=== PATIENT | female | born 2000 | race Caucasian/White ===

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

== ENCOUNTER 2023-05-20 17:30 | Observation (INO) | payer BC | END 2023-05-20 19:21 | disposition home or self-care (01) | LOC: MW.OB 17:30 | PROVIDERS: ADMIT Obstetrics & Gynecology; ATTEND Obstetrics & Gynecology | DX: O42.913 Preterm premature rupture of membranes, unspecified as to length of time between rupture and onset of labor, third trimester (principal); O47.03 False labor before 37 completed weeks of gestation, third trimester; O36.8330 Maternal care for abnormalities of the fetal heart rate or rhythm, third trimester, not applicable or unspecified; Z3A.31 31 weeks gestation of pregnancy | CPT/HCPCS: 59025; 84112 ==

== ENCOUNTER 2025-06-19 11:03 | Observation (INO) | payer BC, MEDICAID ==
[2025-06-19 12:27] LABS: APPEARANCE,URINE CLEAR; GLUCOSE,URINE NEGATIVE (NEGATIVE); OCCULT BLOOD,URINE NEGATIVE (NEGATIVE)
[2025-06-19 12:52] LABS: BASOPHILS ABSOLUTE AUTO 0.04 K/uL (0.00-0.20); BASOPHILS PERCENT AUTO 0.5 % (0.0-1.0); EOSINOPHILS ABSOLUTE AUTO 0.05 K/uL (0.00-0.45); EOSINOPHILS PERCENT AUTO 0.6 % (0.0-6.0); IMMATURE GRAN ABSOLUTE AUTO 0.15 K/uL (0.00-0.05); IMMATURE GRAN PERCENT AUTO 1.9 % (0.0-0.4); LYMPHOCYTES ABSOLUTE AUTO 1.78 K/uL (1.00-4.80); LYMPHOCYTES PERCENT AUTO 22.5 % (24.0-44.0); MEAN PLATELET VOLUME 10.1 fL (9.4-12.3); MONOCYTES ABSOLUTE AUTO 0.58 K/uL (0.00-0.80); MONOCYTES PERCENT AUTO 7.3 % (0.0-8.0); NEUTROPHILS ABSOLUTE AUTO 5.30 K/uL (1.80-7.70); NEUTROPHILS PERCENT AUTO 67.2 % (41.0-71.0); NRBC ABSOLUTE 0.00 K/uL (0.00-0.02); NRBC PERCENT 0.0 /100WBC (0.0-0.2); PLATELET COUNT,PLT 230 K/uL (150-400); RED BLOOD CELL COUNT 4.05 M/uL (4.10-5.30); WHITE BLOOD CELL COUNT,WBC 7.90 K/uL (3.9-11.3)
[2025-06-19 13:28] LABS: A/G RATIO 0.8 (0.9-1.6); ALANINE AMINOTRANSFERASE,ALT 16.0 IU/L (14-63); ASPARTATE AMNIOTRANSFERASE,AST 24.0 IU/L (15-37); BILIRUBIN TOTAL 0.6 mg/dL (0.2-1.0); BLOOD UREA NITROGEN,BUN 3.0 mg/dL (7.0-18.0); CARBON DIOXIDE,CO2 23.5 mmol/L (21.0-32.0); CHLORIDE,CL 104.0 mmol/L (98-107); CREATININE 0.4 mg/dL (0.6-1.0); EST CRCL DRUG DOSING (CG) 204.77 mL/min; GLUCOSE RANDOM 75.0 mg/dL (74-106); POTASSIUM,K 3.8 mmol/L (3.5-5.1); PROTEIN TOTAL,TP 6.3 g/dL (6.4-8.2); SODIUM,NA 137.0 mmol/L (136-145)
[2025-06-19 13:30] LABS: ESTIMATED GFR 143.0 mL/min (>60)
[2025-06-19] MEDS ORDERED: diphenhydrAMINE 50 MG/ML SDV IVPUSH PRN (15:08)
[2025-06-19] MEDS: Lactated Ringers 1,000 ML IV SCH (15:13)
[2025-06-19] MEDS: Betamethasone Acetate/Betamethasone Sod Phosphate 6 MG/1 ML MDV IM ONE (15:30)
[2025-06-19] MEDS: diphenhydrAMINE 50 MG/ML SDV IVPUSH ONE (15:33)
[2025-06-20] MEDS: Acetaminophen/Butalbital/Caffeine 325-50-40 MG Tab PO PRN (13:20)
[2025-06-20] MEDS: Betamethasone Acetate/Betamethasone Sod Phosphate 6 MG/1 ML MDV IM ONE (15:04)
== END 2025-06-20 15:15 | disposition home or self-care (01) ==
LOC: MW.OBCHECK 11:03 → MW.OB 11:04 → MW.OBCHECK 16:12 → MW.OB 16:13
PROVIDERS: ADMIT Obstetrics & Gynecology; ATTEND Obstetrics & Gynecology
DX: O26.893 Other specified pregnancy related conditions, third trimester (principal); R10.10 Upper abdominal pain, unspecified; F32.A Depression, unspecified; F41.9 Anxiety disorder, unspecified; G47.00 Insomnia, unspecified; R45.851 Suicidal ideations; Z3A.36 36 weeks gestation of pregnancy; Z91.018 Allergy to other foods; Z79.899 Other long term (current) drug therapy
CPT/HCPCS: 36415; 59025; 80053; 81003; 84112; 85025; 87086; A9270-GY; J0702; J1200; J7120

== ENCOUNTER 2025-07-05 04:55 | Inpatient (IN) | payer BC, MEDICAID ==
[2025-07-05] MEDS ORDERED: Sodium Chloride 0.9% 10 ML Syringe FLUSH PRN (05:00)
[2025-07-05] MEDS ORDERED: Oxytocin/0.9 % Sodium Chloride 30 UNIT/500 ML BAG IV SCH (05:00)
[2025-07-05] MEDS ORDERED: Sodium Chloride 0.9% 2.5 ML Syringe FLUSH PRN (05:00)
[2025-07-05] MEDS: Lactated Ringers 1,000 ML IV SCH (05:44)
[2025-07-05 05:54] LABS: MEAN PLATELET VOLUME 10.3 fL (9.4-12.3); NRBC ABSOLUTE 0.00 K/uL (0.00-0.02); NRBC PERCENT 0.0 /100WBC (0.0-0.2); PLATELET COUNT,PLT 212 K/uL (150-400); RED BLOOD CELL COUNT 3.92 M/uL (4.10-5.30); WHITE BLOOD CELL COUNT,WBC 7.33 K/uL (3.9-11.3)
[2025-07-05] MEDS ORDERED: fentaNYL 100 MCG/2 ML SDV ONE (07:29)
[2025-07-05] MEDS ORDERED: Ropivacaine 0.5% 5 MG/ML 30 ML SDV ONE (07:29)
[2025-07-05] MEDS ORDERED: Ondansetron 4 MG/2 ML SDV ONE (07:29)
[2025-07-05] MEDS ORDERED: Ketorolac 30 MG/ML SDV ONE (07:29)
[2025-07-05] MEDS ORDERED: Dexamethasone Sod Phos Preservative Free 10 MG/ML Vial ONE (07:29)
[2025-07-05] MEDS ORDERED: Oxytocin 10 Units/1 ML SDV ONE (07:29)
[2025-07-05] MEDS ORDERED: Morphine PF 10 MG/10 ML SDV ONE (07:29)
[2025-07-05] MEDS: Citric Acid/Sodium Citrate Solution 30 ML Cup PO ONE (09:12)
[2025-07-05] MEDS: ceFAZolin 2 GM in Water For Injection, Sterile 20 ML IVPUSH ONE (09:12)
[2025-07-05] MEDS ORDERED: Naloxone 0.4 MG/ML SDV IVPUSH PRN ×2 (10:04→10:08)
[2025-07-05] MEDS ORDERED: fentaNYL 50 MCG/ML SDV IVPUSH PRN (10:04)
[2025-07-05] MEDS ORDERED: Albuterol 0.083% 2.5 MG/3 ML Neb Soln NEB PRN (10:04)
[2025-07-05] MEDS ORDERED: fentaNYL 100 MCG/2 ML SDV IVPUSH PRN (10:04)
[2025-07-05] MEDS ORDERED: Nalbuphine 10 MG/1 ML Vial IVPUSH PRN (10:04)
[2025-07-05] MEDS ORDERED: Ondansetron 4 MG/2 ML SDV IVPUSH PRN ×2 (10:04→10:08)
[2025-07-05] MEDS ORDERED: Oxytocin 10 Units/1 ML SDV IM PRN (10:08)
[2025-07-05] MEDS ORDERED: diphenhydrAMINE 50 MG/ML SDV IVPUSH PRN (10:08)
[2025-07-05] MEDS ORDERED: Lanolin 100% Cream 7 GM Tube TOP PRN (10:08)
[2025-07-05] MEDS ORDERED: Acetaminophen/oxyCODONE 325-5 MG Tab PO PRN (10:08)
[2025-07-05] MEDS: diphenhydrAMINE 50 MG/ML SDV IVPUSH PRN (10:11)
[2025-07-05] MEDS ORDERED: Lactated Ringers 1,000 ML IV SCH (10:15)
[2025-07-05] MEDS: Ketorolac 30 MG/ML SDV IVPUSH SCH (14:05)
[2025-07-06] MEDS: Acetaminophen/oxyCODONE 325-5 MG Tab PO PRN (05:10)
[2025-07-06] MEDS: Lanolin 100% Cream 7 GM Tube TOP PRN (15:08)
== END 2025-07-07 12:02 | disposition home or self-care (01) | DRG 540 ==
LOC: MW.OB 04:55
PROVIDERS: ADMIT Obstetrics & Gynecology; ATTEND Obstetrics & Gynecology Gynecology
PROC: 3E0R3BZ Introduction of Anesthetic Agent into Spinal Canal, Percutaneous Approach (ICD-10-PCS; 2025-07-05)
PROC: 3E03329 Introduction of Other Anti-infective into Peripheral Vein, Percutaneous Approach (ICD-10-PCS; 2025-07-05)
PROC: 10D00Z1 Extraction of Products of Conception, Low, Open Approach (ICD-10-PCS; principal; 2025-07-05 08:00)
DX: O34.211 Maternal care for low transverse scar from previous cesarean delivery (principal); Z3A.39 39 weeks gestation of pregnancy; Z37.0 Single live birth; O99.344 Other mental disorders complicating childbirth; F33.1 Major depressive disorder, recurrent, moderate; F41.9 Anxiety disorder, unspecified; O99.02 Anemia complicating childbirth; D64.89 Other specified anemias
CPT/HCPCS: 11401; 36415; 59025; 59514; 85014; 85018; 85027; 86592; 86850; 86900; 86901; A9270-GY; J0166; J0665; J0690; J1100; J1200; J1885; J2274; J2371; J2405; J2590; J2795; J3010; J7120